=== PATIENT | male | born 1980 | race Two or more races ===

== ENCOUNTER 2019-10-10 17:21 | Emergency (ER) | payer MEDICAID, OTHER ==
[~2019-10-10] VITALS: Ht 167.6 cm; Wt 68.0 kg
[2019-10-10 17:32] VITALS: BP 154/86
[2019-10-10] MEDS ORDERED: ACETAMINOPHEN 500 MG TAB PO ONE (19:15)
== END 2019-10-10 21:22 | disposition home or self-care (01) ==
LOC: ER 17:21 → EDBD 17:21 → ER 21:22
DX: S33.5XXA Sprain of ligaments of lumbar spine, initial encounter (principal); S43.401A Unspecified sprain of right shoulder joint, initial encounter; M54.2 Cervicalgia; R51 Headache; V43.52XA Car driver injured in collision with other type car in traffic accident, initial encounter; Y93.89 Activity, other specified; Y92.488 Other paved roadways as the place of occurrence of the external cause; Y99.8 Other external cause status
CPT/HCPCS: 70450; 72100; 72125; 73030; 73200

== ENCOUNTER 2020-01-10 02:14 | Emergency (ER) | payer MEDICAID ==
[~2020-01-10] VITALS: Ht 167.6 cm; Wt 74.4 kg
[2020-01-10 02:28] VITALS: BP 175/92
== END 2020-01-10 04:07 | disposition home or self-care (01) ==
LOC: ER 02:15
DX: H00.014 Hordeolum externum left upper eyelid (principal); H11.32 Conjunctival hemorrhage, left eye